=== PATIENT | male | born 1965 | race American Indian/Alaskan Native ===

== ENCOUNTER 2017-07-10 20:12 | Emergency (ER) | payer MEDICAID ==
[2017-07-10 20:12] VITALS: BMI 33.1
[2017-07-10 20:30] VITALS: BP 145/94; PULSE 95; RESP 16; TEMP 98.1; O2SAT 100
--- NOTE | 2017-07-10 21:34 | ED PDOC ---
Lower Extremity Pain/Injury Time Seen by Provider: 07/10/17 20:30 Chief Complaint (Nursing): Lower Extremity Problem/Injury Chief Complaint (Provider): Lower extremity injury History Per: Patient History/Exam Limitations: no limitations Onset/Duration Of Symptoms: Hrs (Prior to arrival) Additional Complaint(s): Austin Moreira is a 52 year old male, with a past medical history of hypertension, and hypercholesterolemia, who presents to the emergency department complaining of left lateral foot pain s/p fall onset prior to arrival. Patient reports he was walking to get his mail when he stepped on a rock and twisted his ankle. Patient denies taking any pain medication prior to arrival. No further medical complaints. PMD: Franck Holley - Ankle/Foot Description Of Injury: Twisted Past Medical History Reviewed: Historical Data, Nursing Documentation, Vital Signs Vital Signs: Last Vital Signs Temp 98.1 F 07/10/17 20:27 Pulse 95 H 07/10/17 20:27 Resp 16 07/10/17 20:27 BP 145/94 H 07/10/17 20:27 Pulse Ox 100 07/10/17 20:27 - Medical History PMH: HTN, Hypercholesterolemia Denies: Chronic Kidney Disease - Family History Family History: States: Unknown Family Hx - Social History Current smoker - smoking cessation education provided: Yes (Heavy smoker >10 cigarettes daily) Alcohol: Occasional Drugs: Cannabis - Home Medications Home Medications: Ambulatory Orders Medication Instructions Recorded Atorvastatin [Lipitor] 10 mg PO DAILY 08/31/16 Hydrocodone/Acetaminophen 1 tab PO DAILY 08/31/16 [Acetaminophen-Hydrocodone Bitartrate 325 mg-5] metFORMIN [glucOPHAGE] 500 mg PO BID 08/31/16 - Allergies Allergies/Adverse Reactions: Allergies Allergy/AdvReac Type Severity Reaction Status Date / Time No Known Allergies Allergy Verified 07/10/17 20:27 Review of Systems ROS Statement: Except As Marked, All Systems Reviewed And Found Negative Musculoskeletal: Positive for: Foot Pain (left lateral ankle) Physical Exam - Reviewed Nursing Documentation Reviewed: Yes Vital Signs Reviewed: Yes - Physical Exam Appears: Positive for: Well, Non-toxic, No Acute Distress Head Exam: Positive for: ATRAUMATIC, NORMAL INSPECTION, NORMOCEPHALIC Skin: Positive for: Normal Color, Warm, Dry Eye Exam: Positive for: Normal appearance Neck: Positive for: Normal Respiratory: Positive for: Normal Breath Sounds. Negative for: Respiratory Distress Pulses-Dorsalis Pedis (L): 2+ Pulses-Dorsalis Pedis (R): 2+ Pulses-Post. Tibialis (L): 2+ Pulses-Post. Tibialis (R): 2+ Extremity: Positive for: Tenderness (lateral malleolus ), Other (Pulse good and strenght intact) Neurologic/Psych: Positive for: Alert, Oriented - ECG O2 Sat by Pulse Oximetry: 100 (RA) Pulse Ox Interpretation: Normal Medical Decision Making Medical Decision Making: Initial Impression: Left ankle sprain Initial Plan: --ankle AP LAT 2 VIEWS LT [rad] 2130 -Upon provider reevaluation patient is feeling better, is medically stable, and requires no further treatment in the ED at this time. Patient will be discharged. x-ray normal. Scribe Attestation: Documented by Lukasz Franklin, acting as a scribe for Brittany PALM. Provider Scribe Attestation: All medical record entries made by the Scribe were at my direction and personally dictated by me. I have reviewed the chart and agree that the record accurately reflects my personal performance of the history, physical exam, medical decision making, and the department course for this patient. I have also personally directed, reviewed, and agree with the discharge instructions and disposition. Disposition - Clinical Impression Clinical Impression: Ankle sprain - Patient ED Disposition Is Patient to be Admitted: No Counseled Patient/Family Regarding: Diagnosis, Need For Followup - Disposition Referrals: Podiatry Clinic [Outside] Disposition: Routine/Home Disposition Time: 21:30 Condition: STABLE Additional Instructions: Ice, elevation, aleve for pain. Follow-up with podiatry for continued pain. Instructions: Ankle Sprain (ED) Forms: [employer] (T[place]isian)
[2017-07-10] MEDS ORDERED: Naproxen 500 MG TAB PO STA (21:58)
--- NOTE | 2017-07-11 11:54 | RAD ---
PROCEDURE: Left Ankle Radiographs. HISTORY: lateral ankle pain, twisted COMPARISON: None FINDINGS: BONES: Normal. No fracture. JOINTS: Normal. No osteoarthritis. Ankle mortise maintained. Talar dome intact SOFT TISSUES: Normal. OTHER FINDINGS: None. IMPRESSION: No acute findings related to/accounting for the clinical presentation. No preliminary report provided by emergency department personnel.
== END 2017-07-10 22:03 | disposition home or self-care (01) ==
LOC: H.ER 20:12
DX: S93.402A Sprain of unspecified ligament of left ankle, initial encounter (principal); X50.1XXA Overexertion from prolonged static or awkward postures, initial encounter; Y93.01 Activity, walking, marching and hiking; Y92.9 Unspecified place or not applicable

== ENCOUNTER 2018-03-09 11:04 | Emergency (ER) | payer MEDICAID ==
[2018-03-09 11:08] VITALS: BMI 36.0
[2018-03-09] MEDS ORDERED: Sodium Chloride 0.9% 1,000 ML IV STA (11:18)
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
[2018-03-09 12:51] LABS: BASO % 0.4 % (0.0-2.0); EOS % 0.3 % (0.0-4.0); LYMPH # 1.9 K/uL (1.0-4.3); LYMPH % 16.3 % (20.0-40.0); MEAN CELL VOLUME 90.8 fl (80.0-94.0); MEAN CORPUSCULAR HEMOGLOBIN 29.9 pg (27.0-31.0); MEAN PLATELET VOLUME 6.8 fl (7.2-11.7); MONO # 0.9 K/uL (0.0-0.8); MONO % 8.3 % (0.0-10.0); NEUT # 8.5 K/uL (1.8-7.0); NEUT % 74.7 % (50.0-75.0); NRBC % 0.2 % (0.0-0.0); RBC 4.67 Mil/uL (4.40-5.90); RED CELL DISTRIBUTION WIDTH 12.7 % (11.5-14.5); WHITE BLOOD COUNT 11.4 K/uL (4.8-10.8)
[2018-03-09 13:04] LABS: INR 1.2 (0.9-1.2); PROTHROMBIN TIME 12.9 Seconds (9.8-13.1)
--- NOTE | 2018-03-09 13:53 | CT ---
PROCEDURE: CT HEAD WITHOUT CONTRAST. HISTORY: r/o bleed COMPARISON: None available. TECHNIQUE: Axial computed tomography images were obtained through the head/brain without intravenous contrast. Radiation dose: Total exam DLP = mGy-cm. This CT exam was performed using one or more of the following dose reduction techniques: Automated exposure control, adjustment of the mA and/or kV according to patient size, and/or use of iterative reconstruction technique. FINDINGS: HEMORRHAGE: No intracranial hemorrhage. BRAIN: No mass effect or edema. No atrophy or chronic microvascular ischemic changes. VENTRICLES: Unremarkable. No hydrocephalus. CALVARIUM: Unremarkable. PARANASAL SINUSES: Unremarkable as visualized. No significant inflammatory changes. MASTOID AIR CELLS: Unremarkable as visualized. No inflammatory changes. OTHER FINDINGS: None. IMPRESSION: Normal CT of the Head.
[2018-03-09 13:56] VITALS: RESP 14
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
[2018-03-09] MEDS ORDERED: Tetracaine 0.5% Ophth 2 ML BOTTLE OS ONE (14:48)
[2018-03-09] MEDS ORDERED: Tetracaine 0.5% Ophth 2 ML BOTTLE ONE (14:51)
[2018-03-09 16:53] VITALS: BP 135/80; PULSE 88; TEMP 97.8; O2SAT 100
--- NOTE | 2018-03-10 07:42 | RAD ---
HISTORY: trauma COMPARISON: No prior FINDINGS: BONES: Normal. No fracture. JOINTS: Normal. No osteoarthritis. SOFT TISSUE: Normal. OTHER FINDINGS: None . IMPRESSION: Normal Bone Xray.
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
== END 2018-03-09 16:57 | disposition home or self-care (01) ==
LOC: H.ER 11:04
DX: S09.90XA Unspecified injury of head, initial encounter (principal); H11.32 Conjunctival hemorrhage, left eye; Y04.0XXA Assault by unarmed brawl or fight, initial encounter; Y92.89 Other specified places as the place of occurrence of the external cause; E78.00 Pure hypercholesterolemia, unspecified; I10 Essential (primary) hypertension; Z79.84 Long term (current) use of oral hypoglycemic drugs
CPT/HCPCS: 70450; 70486; 71100; 72125; 80320; 85025; 85610; 99285; J7040